=== PATIENT | male | born 1985 | race Caucasian/White ===

== ENCOUNTER 2019-10-13 21:46 | Emergency (ER) | payer OTHER ==
[~2019-10-13] VITALS: Ht 177.8 cm; Wt 98.0 kg
[2019-10-13 21:55] VITALS: Ht 177.8 cm; Wt 98.0 kg
[2019-10-14 00:21] VITALS: BP 130/78
== END 2019-10-14 00:21 | disposition home or self-care (01) ==
LOC: ED 21:46
DX: J06.9 Acute upper respiratory infection, unspecified (principal)
CPT/HCPCS: 87491; 87591; 87804; J1885; Q0092